=== PATIENT | male | born 1990 | race Caucasian/White ===

== ENCOUNTER 2023-03-04 09:49 | Emergency (ER) | payer OTHER ==
[2023-03-04 11:52] LABS: BASOPHILS % (AUTO) 0.6 %; EOSINOPHILS # (AUTO) 0.1 10^3/uL (0.0-0.7); EOSINOPHILS % (AUTO) 1.5 %; HCT - HEMATOCRIT 42.7 % (42.0-52.0); HGB - HEMOGLOBIN 13.8 g/dL (14.0-18.0); LYMPHOCYTES # (AUTO) 2.3 10^3/uL (1.5-3.5); LYMPHOCYTES % (AUTO) 33.7 %; MEAN CORPUSCULAR HEMOGLOBIN 28.6 pg (27.0-31.0); MEAN CORPUSCULAR HGB CONC 32.3 g/dL (32.0-36.0); MEAN CORPUSCULAR VOLUME 88.6 fL (80.0-94.0); MEAN PLATELET VOLUME 9.5 fL (7.4-11.4); MONOCYTES # (AUTO) 0.7 10^3/uL (0.0-1.0); MONOCYTES % (AUTO) 10.3 %; NEUTROPHILS # (AUTO) 3.6 10^3/uL (1.5-6.6); NEUTROPHILS % (AUTO) 53.6 %; PLT - PLATELET COUNT 325 10^3/uL (130-450); RED BLOOD COUNT 4.82 10^6/uL (4.70-6.10); RED CELL DISTRIBUTION WIDTH 12.1 % (12.0-15.0); WHITE BLOOD COUNT 6.8 x10^3/uL (4.8-10.8)
--- NOTE | 2023-03-04 11:59 | ED Physician Documentation ---
History of Present Illness - Stated complaint Stated Complaint: MALE - Chief complaint Chief Complaint: General - Additonal information Additional information: 32-year-old male presents emergency department for evaluation of acute right te sticular pain. Symptoms began yesterday. States that he has had a vasectomy in the past. Since then he has intermittently had this pain but not as severe as this. No fevers. No testicular or scrotal swelling. Patient is sexually active with his . He denies giving or receiving any type of rectal sex. States 2 weeks ago he had some dysuria and burning with urination that resolved after he drank cranberry juice. Takes no prescribed medications otherwise. Review of Systems Constitutional: reports: Reviewed and negative Nose: reports: Reviewed and negative Throat: reports: Reviewed and negative Cardiac: reports: Reviewed and negative Respiratory: reports: Reviewed and negative : reports: Dysuria, Testicular pain Skin: reports: Reviewed and negative PD PAST MEDICAL HISTORY - Present Medications Home Medications: Ambulatory Orders Medication Instructions Recorded Confirmed Doxycycline Hyclate 100 mg PO BID #20 cap 03/04/23 oxyCODONE [Roxicodone] 5 mg PO BID PRN #6 tablet 03/04/23 - Allergies Allergies/Adverse Reactions: Allergies Allergy/AdvReac Type Severity Reaction Status Date / Time No Known Drug Allergies Allergy Verified 03/04/23 11:39 PD ED PE NORMAL - General General: Alert and oriented X 3, No acute distress - Cardiac Cardiac: RRR, No murmur - Abdomen Abdomen: Normal bowel sounds. No: Soft, Non tender - Male Male : Other (Right testicular tenderness without scrotal swelling or erythema. Positive cremasteric bilaterally. No inguinal lymphadenopathy. Circumcised penis without exudate or discharge. No suprapubic tenderness. No obvious hernias.) - Back Back: No CVA TTP - Derm Derm: Normal color, Warm and dry, No rash - Extremities Extremities: No deformity - Neuro Neuro: Alert and oriented X 3 Eye Opening: Spontaneous Motor: Obeys Commands Verbal: Oriented GCS Score: 15 Results - Vitals Vitals: Vital Signs - 24 hr 03/04/23 03/04/23 09:56 12:37 Temperature 36.3 C L Heart Rate 83 67 Respiratory 16 20 Rate Blood Pressure 138/92 H 141/89 H O2 Saturation 97 100 Oxygen O2 Source Room air - Labs Labs: Laboratory Tests 0503/04/23 03/04/23 11:45 11:45 12:00 WBC 6.8 RBC 4.82 Hgb 13.8 L Hct 42.7 MCV 88.6 MCH 28.6 MCHC 32.3 RDW 12.1 Plt Count 325 MPV 9.5 Neut # (Auto) 3.6 Lymph # (Auto) 2.3 Clare # (Auto) 0.7 Eos # (Auto) 0.1 Baso # (Auto) 0.0 Absolute Nucleated RBC 0.00 Nucleated RBC % 0.0 Sodium 141 Potassium 4.0 Chloride 104 Carbon Dioxide 29 Anion Gap 8.0 BUN 14 Creatinine 1.0 Estimated GFR (MDRD) 86 L Glucose 87 Calcium 9.3 Total Bilirubin 0.9 AST 24 ALT 35 Alkaline Phosphatase 56 Total Protein 7.4 Albumin 4.3 Globulin 3.1 Albumin/Globulin Ratio 1.4 Lipase 34 Urine Color YELLOW Urine Clarity CLEAR Urine pH 6.0 Ur Specific Tsaile >=1.030 H Urine Protein NEGATIVE Urine Glucose (UA) NEGATIVE Urine Ketones NEGATIVE Urine Occult Blood NEGATIVE Urine Nitrite NEGATIVE Urine Bilirubin NEGATIVE Urine Urobilinogen 0.2 (NORMAL) Ur Leukocyte Esterase NEGATIVE Ur Microscopic Review NOT INDICATED Urine Culture Comments NOT INDICATED - Rads (name of study) testicular US Relevant Findings:: Other (Per soil technologist no torsion. No findings to suggest acute epididymitis or orchitis. No hernias present) PD Medical Decision Making - ED course Complexity details: reviewed results, re-evaluated patient, considered differential, d/w patient, d/w family ED course: 32-year-old male presents emergency department for evaluation of acute right testicular pain that began yesterday. He describes it is constant in nature. States that 2 weeks ago he had some dysuria that self resolved. He has no scrotal swelling or erythema. No fevers. He denies any rectal play or insertive rectal intercourse. Denies difficulty initiating his urine stream. Here in the emergency department CBC, electrolytes and urinalysis were com pleted. Per my interpretation no acute worrisome findings. We did obtain a testicular ultrasound with Doppler to evaluate for the possibility of epididymitis/orchitis, torsion or hernia. There were no acute radiographic findings. However given the acuity of the pain and his history I feel he would likely continue to benefit from a course of antibiotics for epididymitis/orchitis given often there are no initial radiographic or laboratory findings to suggest this. Chlamydia and gonorrhea are pending. He will be given ceftriaxone and a 10-day course of doxycycline here in the emergency department. He will follow-up with [facility] for referral to urology. I discussed with him that if this initial course of antibiotics was not effective he may benefit from treatment with a diamond quinolone for enteric organisms though patient would like to avoid this at this juncture if possible given the concern for tendinopathy associated with fluoroquinolones. I am prescribing a short course of short-acting opioid pain medication for this patient. I have reviewed the patients SAMPLE COLLECTOR and no concerning findings were noted. I have discussed that the opioids are for short term therapy only, and will not be refilled from the ED. Departure - Departure Disposition: 01 Home, Self Care Clinical Impression: Right testicular pain Condition: Stable Record reviewed to determine appropriate education?: Yes Prescriptions: Doxycycline Hyclate 100 mg PO BID #20 cap oxyCODONE [Roxicodone] 5 mg PO BID PRN #6 tablet PRN Reason: Pain Comments: You were seen today in the emergency department because you developed acute pain in your right testicle yesterday. As discussed at the bedside we were concerned about the possibility of a testicular torsion. The ultrasound did not show any worrisome findings. We also discussed the possibility that this could be due to a urinary tract infection. Your urinalysis was normal. Finally other causes of testicular pain in your age group can include conditions such as epididymitis or orchitis. Although your labs and ultrasound imaging today did not suggest epididymitis or orchitis, initial imaging can be negative early in the course. I still think that you would benefit from a course of antibiotics. We are giving you a single injection of ceftriaxone once here in the emergency department and you will be discharged with prescription for doxycycline that you will take twice daily for the next 10 days. With appropriate antibiotics I would expect improved pain and symptoms over the next 72 to 96 hours. It is important that you discuss this ED visit with [facility] as you would benefit from referral to urology. As we also discussed at the bedside we are treating you with antibiotics traditionally associated with sexually-transmitted infection though your risk of this is low. If this course of antibiotics does not improve your symptoms it may be beneficial to transition you to a class of medications called fluoroquinolones. If at any point you find that you have scrotal swelling, redness, develop any fevers or worsening symptoms do not hesitate to return to the ER for second evaluation. I am prescribing a short course of narcotic pain medication for you. These are potentially dangerous and addictive medications that should be used carefully. These medications may constipate you. Take an vwdh-jnx-ahekzuk stool softener (docusate) twice daily with plenty of water while taking these medications. If you go 24 hours without a bowel movement, take [id number] miralax, per package instructions. Do not drink or drive while taking these medications. If you received narcotic or sedating medications while in the emergency department, do not drive for 24 hours. Store this medication in a safe, secure place and out of reach of children. It is a violation of federal law to give or sell this medication to another person or to use in a manner other than prescribed. The ED will not refill narcotic prescriptions, including prescriptions lost or stolen. To dispose of unwanted medications: 1. [facility] [address] [facility] [facility] in [place] has a medication drop box. They accept prescription medications (in pill form) Thursday through Thursday 9:00 a.m. to 5:00 p.m. 2. The [facility] [employer] accepts prescription medications (in pill form only) for disposal year round. Call for more information. 3. Contact the [facility] for the next [facility] sponsored prescription drug collection event. , [phone], or [phone]; Note that many narcotic pain relievers also contain Tylenol/acetaminophen. Please ensure that your total dose of acetaminophen from all sources does not exceed 3 g (3000 mg) per day.
[2023-03-04 12:06] LABS: ALBUMIN 4.3 g/dL (3.2-5.5); ALBUMIN/GLOBULIN RATIO 1.4 (1.0-2.2); BILIRUBIN,TOTAL 0.9 mg/dL (0.2-1.0); CALCIUM 9.3 mg/dL (8.5-10.3); TOTAL PROTEIN 7.4 g/dL (6.7-8.2)
[2023-03-04 12:21] LABS: BILIRUBIN,URINE NEGATIVE (NEGATIVE); GLUCOSE, URINE (UA) NEGATIVE (NEGATIVE); KETONES,URINE (UA) NEGATIVE (NEGATIVE); LEUKOCYTE ESTERASE, URINE NEGATIVE (NEGATIVE); NITRITE,URINE NEGATIVE (NEGATIVE); OCCULT BLOOD,URINE NEGATIVE (NEGATIVE); PROTEIN,URINE NEGATIVE (NEGATIVE); UROBILINOGEN,URINE 0.2 (NORMAL) E.U./dL (NORMAL)
[2023-03-04] MEDS ORDERED: HYDROmorphone 1 MG/ML CARPUJECT IVP STA (12:27)
[2023-03-04 12:30] LABS: CLARITY,URINE CLEAR (CLEAR)
[2023-03-04] MEDS ORDERED: HYDROmorphone 1 MG/ML CARPUJECT IM STA (12:33)
--- NOTE | 2023-03-04 12:56 | Ultrasound Report ---
PROCEDURE: Testicle w/Doppler INDICATIONS: testicular pain TECHNIQUE: Real-time scanning was performed of the scrotum and testicles, with image documentation. Color and p ulse Doppler interrogation was performed of both testicles. COMPARISON: None. FINDINGS: Right: Testicle is normal in size at 3.9 x 2.1 x 2.3 cm, and homogenous in echotexture. Epididymis is normal in overall size and morphology. No varicoceles. Small hydrocele. Overlying scrotal skin is normal in thickness. Incidental epididymal head cyst noted. Left: Testicle is normal in size at 3.7 x 2.1 x 2.2 cm, and homogeneous in echotexture. Epididymis is normal in overall size and morphology. No varicoceles. Small hydrocele. Overlying scrotal skin i s normal in thickness. Incidental epididymal head cyst noted. Doppler: Color and pulse Doppler demonstrate normal and symmetric arterial flow in both testicles. IMPRESSION: Bilateral testicle without acute sonographic abnormalities. Small bilateral hydroceles without abnorm al fluid collection seen. Reviewed by: Terry Laureano MD on 03/04/2023 12:54 PM PDT Approved by: Terry Laureano MD on 03/04/2023 12:54 PM PDT Station ID: [id number]
[2023-03-04] MEDS ORDERED: cefTRIAXone 500 MG VIAL IM STA (13:31)
[2023-03-04] MEDS ORDERED: LIDOCAINE 1% 2 ML VIAL MC ONE (13:31)
[2023-03-04 13:52] VITALS: BP 148/80
[2023-03-04 20:57] LABS: CHLAMYDIA TRACHOMATIS DNA NEGATIVE (NEGATIVE)
[2023-03-04 20:58] LABS: NEISSERIA GONORRHOEAE DNA NEGATIVE (NEGATIVE); TRICHOMONAS VAGINALIS DNA NEGATIVE (NEGATIVE)
== END 2023-03-04 13:52 | disposition home or self-care (01) ==
LOC: ED 09:49
DX: N50.811 Right testicular pain (principal)
CPT/HCPCS: 36415; 76870; 80053; 81003; 83690; 85025; 87491; 87591; 87661; 93975; 96372; 96374; 99284; J1170; 81001; 87086

== ENCOUNTER 2023-08-01 13:08 | Outpatient (CLI) | payer OTHER ==
--- NOTE | 2023-08-04 10:38 | MRI Report ---
PROCEDURE: KNEE WO - LT INDICATIONS: LEFT KNEE PAIN TECHNIQUE: Noncontrast sagittal PD fast spin echo and T2 fast spin echo with fat saturation, sagittal 3-D gradie nt sequence with fat saturation; coronal T1 spin echo and PD fast spin echo with fat saturation, and axial PD fast spin echo with fat saturation through the knee. COMPARISON: None. FINDINGS: Image quality: Excellent. Menisci: There is oblique tear of the posterior horn the medial meniscus involving the inferior tu cular surface. The lateral meniscus demonstrates normal morphology and internal signal. The meniscal root ligaments appear intact. Cruciate ligaments: The anterior and posterior cruciate ligaments appear intact. Medial structures: The medial collateral ligament appears intact. The semimembranosus tendon insert ions and meniscocapsular junction appear intact. Visualized portions of the pes anserinus tendons ap pear normal. No abnormal bursal fluid. Lateral structures: The lateral collateral ligament, long and short heads of the biceps femoris tend on appear intact. The popliteus tendon appears normal. Iliotibial band appears normal. Anterior structures: There are postsurgical changes related to medial patellofemoral ligament/patella r retinaculum repair. The medial patellofemoral ligament is thickened. The quadriceps and patellar te ndons appear intact. There is low-grade quadriceps tendinitis and patellar tendinitis. Patellar alig nment is normal. No femoral trochlear dysplasia or ventral trochlear prominence. No edema in the in frapatellar fat pad. Bones and cartilage: No bone marrow contusions or fractures. Mild edema in the medial aspect of wilkerson lla. Surgical screws are seen within the patella. There is mild cartilage fibrillation with preserved cartilage thickness. Joint space: There is trace knee joint fluid. No Dewitt's cyst. Normal appearing synovial plicae ar e incidentally noted. IMPRESSION: 1. Tear of the posterior horn of the medial meniscus. 2. Low-grade quadriceps tendinitis and patellar tendinitis. 3. Medial patellofemoral ligament/patellar retinaculum repair. No recurrent tear. Mild thickening of the medial patellofemoral ligament is likely secondary to postsurgical change. Reviewed by: Katlyn Edmond MD on 08/04/2023 10:36 AM PDT Approved by: Katlyn Edmond MD on 08/04/2023 10:36 AM PDT Station ID: [id number]
== END 2023-08-01 13:09 | disposition home or self-care (01) ==
LOC: DI 13:08
PROVIDERS: ATTEND Physician Assistant
DX: S83.242A Other tear of medial meniscus, current injury, left knee, initial encounter (principal); M77.8 Other enthesopathies, not elsewhere classified; Z98.890 Other specified postprocedural states

== ENCOUNTER 2024-04-19 08:00 | Outpatient (CLI) | payer OTHER ==
[2024-04-19 23:10] LABS: CHLAMYDIA TRACHOMATIS DNA NEGATIVE (NEGATIVE); NEISSERIA GONORRHOEAE DNA NEGATIVE (NEGATIVE); TRICHOMONAS VAGINALIS DNA NEGATIVE (NEGATIVE)
== END 2024-04-19 23:59 | disposition home or self-care (01) ==
LOC: LAB.N 08:00
PROVIDERS: ATTEND Nurse Practitioner
DX: R30.0 Dysuria (principal)
CPT/HCPCS: 87086; 87491; 87591; 87661